=== PATIENT | male | born 1960 | race Caucasian/White ===

== ENCOUNTER 2018-11-14 20:36 | Observation (INO) | payer OTHER ==
[2018-11-14 21:14] LABS: ADD MAN DIFF? NO
[2018-11-14 21:16] LABS: BASOPHILS % 0.2 % (0.0-2.0); EOSINOPHILS % 0.2 % (0.0-7.0); HEMATOCRIT 43.4 % (42.0-52.0); HEMOGLOBIN 14.5 g/dl (14.0-18.0); LYMPHOCYTES # 1.3 10^3/ul (0.8-2.9); LYMPHOCYTES % 11.4 % (15.0-51.0); MEAN CORPUSCULAR HEMOGLOBIN 30.2 pg (29.0-33.0); MEAN CORPUSCULAR HGB CONC 33.4 g/dl (32.0-37.0); MEAN CORPUSCULAR VOLUME 90.4 fl (82.0-101.0); MEAN PLATELET VOLUME 9.5 fl (7.4-10.4); MONOCYTE # 0.4 10^3/ul (0.3-0.9); MONOCYTES % 3.7 % (0.0-11.0); NEUTROPHIL # 9.5 10^3/ul (1.6-7.5); PLATELET COUNT 362 10^3/UL (140-415); RED CELL DISTRIBUTION WIDTH 13.7 % (11.5-14.5)
[2018-11-14 21:16] LABS: WHITE BLOOD COUNT 11.3 10^3/ul (4.8-10.8)
[2018-11-14] MEDS: ASPIRIN 81 MG TAB PO (21:16)
[2018-11-14 21:42] LABS: ANION GAP 12 (5-13); BLOOD UREA NITROGEN 20 mg/dl (7-20); CALCIUM 9.6 mg/dl (8.4-10.2); CARBON DIOXIDE 24 mmol/L (21-31); CHLORIDE 104 mmol/L (97-110); CREATININE 0.74 mg/dl (0.61-1.24); Estimated GFR > 60 mL/min (>60); GLUCOSE 125 mg/dl (70-220); POTASSIUM 4.6 mmol/L (3.5-5.1); SODIUM 140 mmol/L (135-144)
[2018-11-14 21:54] LABS: TROPONIN-I < 0.012 ng/ml (0.000-0.120)
[2018-11-14] MEDS ORDERED: ONDANSETRON 4 MG TAB PO (22:30)
[2018-11-14] MEDS ORDERED: DOCUSATE SODIUM 100 MG CAP PO (22:30)
[2018-11-14] MEDS ORDERED: ACETAMINOPHEN 325 MG TAB PO (22:30)
[2018-11-14] MEDS ORDERED: NACL 0.9% 3 ML SYG IV (22:30)
[2018-11-14] MEDS ORDERED: HYDROCODONE/APAP (5/325) TAB PO (22:30)
[2018-11-15] MEDS: FAMOTIDINE 20 MG TAB PO ×2 (00:19→09:41)
[2018-11-15 03:22] LABS: CREATINE KINASE 91 IU/L (23-200)
[2018-11-15 03:34] LABS: CK INDEX 1.2; CK-MB 1.11 ng/ml (0.0-2.4); TROPONIN-I < 0.012 ng/ml (0.000-0.120)
[2018-11-15 05:41] LABS: ADD MAN DIFF? NO
[2018-11-15 05:44] LABS: WHITE BLOOD COUNT 11.2 10^3/ul (4.8-10.8)
[2018-11-15 05:44] LABS: BASOPHILS % 0.1 % (0.0-2.0); EOSINOPHILS % 0.1 % (0.0-7.0); HEMATOCRIT 41.6 % (42.0-52.0); HEMOGLOBIN 14.1 g/dl (14.0-18.0); LYMPHOCYTES # 1.6 10^3/ul (0.8-2.9); LYMPHOCYTES % 14.5 % (15.0-51.0); MEAN CORPUSCULAR HEMOGLOBIN 30.7 pg (29.0-33.0); MEAN CORPUSCULAR HGB CONC 33.9 g/dl (32.0-37.0); MEAN CORPUSCULAR VOLUME 90.6 fl (82.0-101.0); MEAN PLATELET VOLUME 9.8 fl (7.4-10.4); MONOCYTE # 0.4 10^3/ul (0.3-0.9); MONOCYTES % 3.4 % (0.0-11.0); NEUTROPHIL # 9.2 10^3/ul (1.6-7.5); NEUTROPHILS % 81.5 % (39.0-77.0); PLATELET COUNT 334 10^3/UL (140-415); RED BLOOD COUNT 4.59 10^6/ul (4.70-6.10)
[2018-11-15 06:05] LABS: HEMOGLOBIN A1C 5.3 % (0-5.9)
[2018-11-15 06:14] LABS: ANION GAP 11 (5-13); BLOOD UREA NITROGEN 19 mg/dl (7-20); CALCIUM 9.4 mg/dl (8.4-10.2); CARBON DIOXIDE 23 mmol/L (21-31); CHLORIDE 105 mmol/L (97-110); CHOL/HDL RATIO 8.2 RATIO; CHOLESTEROL 257 mg/dl (100-200); CREATININE 0.54 mg/dl (0.61-1.24); Estimated GFR > 60 mL/min (>60); GLUCOSE 135 mg/dl (70-220); HDL CHOLESTEROL 31 mg/dl (28-71); LDL CHOLESTEROL,CALCULATED 202 mg/dl; POTASSIUM 4.2 mmol/L (3.5-5.1); SODIUM 139 mmol/L (135-144); TRIGLYCERIDES 118 mg/dl (0-149)
[2018-11-15 06:19] LABS: D-DIMER 1624.58 ng/ml (<460)
[2018-11-15 06:20] LABS: TROPONIN-I < 0.012 ng/ml (0.000-0.120)
[2018-11-15 06:39] LABS: THYROID STIMULATING HORMONE 0.267 MIU/L (0.465-4.680)
[2018-11-15] MEDS: ENOXAPARIN 40 MG/0.4 ML SYG SC (09:49)
[2018-11-15 10:27] LABS: CREATINE KINASE 82 IU/L (23-200)
[2018-11-15 10:36] LABS: CK INDEX 1.2; CK-MB 0.96 ng/ml (0.0-2.4); TROPONIN-I < 0.012 ng/ml (0.000-0.120)
[2018-11-15] MEDS: REGADENOSON 0.4 MG/5 ML SYG (13:14)
[2018-11-15] MEDS ORDERED: NITROGLYCERIN (SL) 0.4 MG TAB SL (13:30)
[2018-11-15] MEDS ORDERED: ATORVASTATIN 40 MG TAB NGT (21:00)
[2018-11-16] MEDS ORDERED: ASPIRIN 81 MG TAB PO (09:00)
== END 2018-11-15 17:05 | disposition home or self-care (01) ==
LOC: 6WM 11-15 02:14 → E/R 20:36 → 6WM 22:37
DX: R07.89 Other chest pain (principal); E78.5 Hyperlipidemia, unspecified; F17.200 Nicotine dependence, unspecified, uncomplicated
CPT/HCPCS: 36415; 71045; 78452; 80048; 80061; 82550; 82553; 83036; 84439; 84443; 84484; 85025; 85378; 93005; 93017; 93306; 99285-25; G0378